=== PATIENT | female | born 1960 | race Two or more races ===

== ENCOUNTER 2024-11-26 05:30 | Day surgery (SDC) | payer MEDICAID, SELFPAY ==
--- NOTE | 2024-11-25 06:00 | EKG_ITS ---
[facility] Test Date: 2024-11-25 Pat Name: EZRA CARREON Department: Room: - Gender: Female Pony Rougher: MARIANELA : 1960 Requested By: Sánchez Bhat Order Number: [id number] Reading MD: Sánchez Bhat Measurements Intervals [place] Rate: 76 P: 3 MI: 165 QRS: -9 QRSD: 80 T: 31 QT: 381 QTc: 430 Interpretive Statements SINUS RHYTHM LOW QRS VOLTAGE IN PRECORDIAL LEADS PATTERN CONSISTENT WITH PULMONARY DISEASE No previous ECG available for comparison /store/S0/[id number]
[2024-11-25 09:56] VITALS: BMI 30.2
[2024-11-25 10:52] LABS: Basophils % (Auto) 1 % (0-2.5); Eosinophils # (Auto) 0.2 Thou/mm3 (0.0-0.5); Eosinophils % (Auto) 3 % (0-10); Hematocrit 41.8 % (36.0-46.0); Hemoglobin 13.9 g/dL (12.0-16.0); Immature Granulocytes % (Auto) 0 % (0-0); Immature Granulocytes Auto 0.01 Thou/mm3 (0.00-0.00); Lymphocytes # (Auto) 1.7 Thou/mm3 (1.0-4.8); Lymphocytes % (Auto) 34 % (10-50); Mean Corpuscular HGB Conc 33.3 g/dl (31.0-37.0); Mean Corpuscular Hemoglobin 30.5 pg (25.0-35.0); Mean Corpuscular Volume 92 fL (80-100); Monocytes # (Auto) 0.5 Thou/mm3 (0.0-0.8); Monocytes % (Auto) 9 % (0-12); Neutrophils # (Auto) 2.8 Thou/mm3 (1.8-7.7); Neutrophils % (Auto) 54 % (37-80); Nucleated Red Blood Cell % 0 /100 WBC (0); Platelet Count 182 Thou/mm3 (140-440); RDW Standard Deviation 41.9 fL (36.4-46.3); Red Blood Count 4.55 Miln/mm3 (4.00-5.20); White Blood Count 5.2 Thou/mm3 (3.6-11.0)
[2024-11-25 11:10] LABS: Alanine Aminotransferase 20 U/L (10-49); Albumin, Serum 4.8 gm/dL (3.4-4.8); Alkaline Phosphatase 103 U/L (46-116); Anion Gap 6 (7-16); Aspartate Amino Transferase 14 U/L (0-34); BUN/Creatinine Ratio 23 Ratio (12-20); Bilirubin,Total 0.8 mg/dL (0.3-1.2); Blood Urea Nitrogen 18 mg/dL (9-23); Calcium 9.9 mg/dL (8.3-10.6); Calcium (Corrected) 9.9 mg/dL (8.5-10.1); Carbon Dioxide 28.8 mMol/L (20.0-31.0); Chloride 104 mMol/L (98-107); Creatinine (Component) 0.8 mg/dL (0.6-1.3); Estimated Creatinine Clearance 76.4 mL/min (>60); Globulin 2.4 gm/dL (2.3-3.5); Glucose 93 mg/dL (74-106); Osmolality,Calculated 279 (275-295); Potassium 4.2 mMol/L (3.4-5.1); Sodium 139 mMol/L (136-145); Total Protein 7.2 gm/dL (5.7-8.2); eGFR > 60 See Note
[2024-11-25 11:48] LABS: Hepatitis A Antibody IgM Non Reactive (Non React); Hepatitis B Core Antibody IgM Non Reactive (Non React); Hepatitis B Surface Antigen Non Reactive (Non React); Hepatitis C Antibody Non Reactive (Non React)
[2024-11-25 14:46] LABS: HIV (1&2) Antibody Rapid Non-Reactive
[2024-11-26] VITALS (18 sets, daily range): BP systolic 108–136; BP diastolic 60–98; PULSE 69–90; RESP 12–98; TEMP 36.1–36.6; O2SAT 95–100; BMI 30.1
[2024-11-26] MEDS: RINGERS LACTATED 1000 ML 1,000 ML 20 ML IV (06:30)
--- NOTE | 2024-11-26 07:57 | PD.GYNHP ---
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 LINDSAY is a 64 year old female para 3 previous vaginal deliveries is admitted for a total laparoscopic hysterectomy bilateral salpingo-oophorectomy. Patient has a significant history of breast cancer. Had a left mastectomy with chemotherapy. Last year, she had a pelvic pain and evaluation showed darin presence ofg 7 cm left ovarian cyst . All evaluation for tumor marker were negative and CT negative for lymphadenopathy. Patient was offerd expectant managemnt , but the cyst persisted for almost a year. 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 ENGINEERING PROFESSOR Vital Signs Temp Pulse Resp BP Pulse Ox 97.5 F 74 15 108/60 99 11/26/24 06:17 11/26/24 06:17 11/26/24 06:17 11/26/24 06:17 11/26/24 06:17 Constitutional Constitutional: no acute distress Routine HEENT Exam Head: Present normocephalic and atraumatic Eye: Present EOMI and PERRL ENT: Present mucous membranes moist Routine Neck Exam Neck: Present supple and trachea midline Routine Respiratory Exam Respiratory: Present chest non-tender, lungs clear, normal breath sounds and no resp distress Routine Cardiovascular Exam Cardiovascular: Present RRR Routine Abdominal Exam Abdominal: Present soft and normoactive bowel sounds Routine Extremities Exam Extremities: Present full ROM Routine Skin Exam Skin: Present intact and dry Routine Neurological Exam Neurological: Present alert, oriented X3 and CN II-XII intact Routine Psychiatric Exam Psychiatric: Present normal affect and normal thought process MECHANICAL ENGINEERING PROFESSOR - Results Labs 11/25/24 10:26 11/25/24 10:26 Labs: Short CBC 11/25/24 Range/Units 10:26 WBC 5.2 (3.6-11.0) Thou/mm3 Hgb 13.9 (12.0-16.0) g/dL Hct 41.8 (36.0-46.0) % Plt Count 182 (140-440) Thou/mm3 BMP 11/25/24 10:26 Sodium 139 Potassium 4.2 Chloride 104 Carbon Dioxide 28.8 BUN 18 Creatinine 0.8 Glucose 93 Calcium 9.9 Liver Function 11/25/24 Range/Units 10:26 Total Bilirubin 0.8 (0.3-1.2) mg/dL AST 14 (0-34) U/L ALT 20 (10-49) U/L Alkaline Phosphatase 103 (46-116) U/L Albumin 4.8 (3.4-4.8) gm/dL Impressions Impression: 64 y/o p3, here for TLH+BSO Ovarian left cyst 6-7 cm Tumor marker negative , CT scan lymphadenopathy negative , no free fluid Small uterus atrophic retroverted Quality Measures Quality Measures VTE prophylaxis
--- NOTE | 2024-11-26 11:20 | SUR.PHASEI ---
pt received from OR in recovery bay 1. pt obtunded, breathing unlabored on 8l oxymask, oral airway in place. v/s stable. pt dressing to abd dermabond x3 cdi. report received from Sumi CARRANZA and Beata REDDY.
--- NOTE | 2024-11-26 11:50 | ESOP_ITS ---
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 The potential benefits and risks of the procedure, the likelihood of success, and the problems related to recuperation have been discussed with patient who agrees to proceed. The possible results of nontreatment and significant alternatives to the proposed procedure have also been explained, along with the risks and benefits of the alternatives. Risks and benefits of chosen anesthetic/sedation and possible use of blood/blood products (if appropriate) were discussed.The patient was identified as Angela Block and the procedure verified. A time out was held reviewing the patient identifiers, procedure planned and allergies.After administration of general anesthesia, the patient was placed in the dorsal lithotomy position, and prepped and draped in the usual sterile fashion. On examination under anesthesia,the uterus was anteverted at 10wk size. A márquez catheter was placed. The speculum was placed in the vagina, the cervix was grasped with the tenaculum, and a vaginal uterine manipulator medium Vcare was inserted. This area was then draped off the remainder of the operative field. This area was then draped off the remainder of the operative field. Supraumblical incision made and a verees needle used to establish pneumoperitioneum. 5 mm tracar inserted under optiview. After insufflation, a full survey of the abdominal cavity was done, and there were no abnormalities visualized. The patient was placed in Trendelenburg position, and the bowel was pushed out of the pelvis. At this time, a second skin incision was made 4 cm rt of the mildline port , and a second 5 mm trocar and sleeve were advanced under direct visualization. The trocar was withdrawn and replaced with a probe. A third incision was made at Left ASIS and the trocar placed under direct visualization without difficulty. Upon visualization of the pelvic organs, the uterus, left fallopian tubes and ovary were normal. Uterus was found to be retroverted and less mobile with posterior adhesions in the cul-de-sac. Large left ovarian cyst incorporating the left ovary was first removed intact avoiding any spillage of the contents. The end of the left fallopian tube was grasped with the grasper and the enseal device was then used to transect the mesosalpinx inferior to the fallopian tube, then the left round ligament followed by the left ligament were doubly coagulated with the and transected without difficulty. The uterine vessels, anterior and posterior leaves of the broad ligament were coagulated and transected in a serial manner to the level of the uterine artery. A similar procedure was carried out on the right. As dissection proceeded from the left to posterior wall of the uterus proximity to the colon was noted. Colorectal surgeon Dr. Ortega was consulted intraoperatively. Please see 's note for additional information. After ruling out any injury to the colon, next, the anterior leaf of the broad ligament was then dissected to the midline bilaterally, establishing a bladder flap with a combination of blunt and sharp dissection. Posterior adhesions were slowly dissected bluntly and the uterus was freed for the posterior colpotomy the uterine artery was then identified and doubly coagulated then transected without difficulty. Right ovary and tube were also removed. Copious suction irrigation was performed to evaluate for further bleeding but hemostasis was noted. colpotomy completed with harmonic device and vaginally the specimen was retrieved. Specimen retrieved vaginally along with b/l tubes and ovaries, it was passed off the operative field. The pedicles were evaluated with no bleeding noted. Vaginal stitching of the cuff done. Hemostasis was noted. Diagnostic cystoscopy done, dome examined with darin bubble, to be intact . B./L strong jets noticed Skin incision was repaired using monocryl 4-0 in a subcuticular stitch. The instrument, sponge, and needle counts were correct. Band-Aid were applied for dressing and the patient was taken to the recovery room in satisfactory condition.There were no complications.? Estimated blood loss (ml): 5 Surgical staff Operation Date: 11/26/24 07:30 Case Staff Assisting Surgeon: Jami Ortega LICENSED LOAN OFFICER: Zuri López RN First Assistant: Lorrie Valle Diagnosis Problem List Completed Was Problem List Reviewed/Reconciled?: Yes
[2024-11-26] MEDS: fentaNYL CIT INJ 50 mCg/ML AMP 2ML IV (11:52)
[2024-11-26] MEDS: RINGERS LACTATED 1000 ML 1,000 ML 125 ML IV ×2 (12:05→20:22)
[2024-11-26] MEDS: HYDROmorphone INJ 2 MG/ML VIAL 0.5 MG IVP (12:23)
[2024-11-26] MEDS: SIMETHICONE 80 MG CHEW PO ×2 (13:31→20:21)
--- NOTE | 2024-11-26 16:30 | SUR.PHASEII ---
Pt awake and alert, breathing unlabored on room air. v/s stable. pt dressing to abd dermabond x3 cdi. report called to Colette CARRANZA. pt will be transferred to room at this time.
[2024-11-26] MEDS: DOCUSATE SOD 100 MG CAPSULE PO (20:21)
[2024-11-26 21:26] LABS: Hematocrit 38.8 % (36.0-46.0); Hemoglobin 12.9 g/dL (12.0-16.0)
--- NOTE | 2024-11-26 23:00 | PC.NURSE ---
Removed márquez at 2300 per MD order. MD said ok for patient to talk in the room. Patient educated about fall risk precautions and to ask for assistance using call light
[2024-11-27] VITALS: BP 105/51; PULSE 82; RESP 18; TEMP 36.9; O2SAT 95
[2024-11-27 04:00] VITALS: BP 95/61; PULSE 77; RESP 18; TEMP 36.8; O2SAT 97
[2024-11-27 05:52] LABS: Basophils % (Auto) 0 % (0-2.5); Eosinophils % (Auto) 0 % (0-10); Hematocrit 39.2 % (36.0-46.0); Immature Granulocytes % (Auto) 1 % (0-0); Immature Granulocytes Auto 0.05 Thou/mm3 (0.00-0.00); Lymphocytes # (Auto) 1.6 Thou/mm3 (1.0-4.8); Lymphocytes % (Auto) 15 % (10-50); Mean Corpuscular HGB Conc 33.2 g/dl (31.0-37.0); Mean Corpuscular Hemoglobin 30.4 pg (25.0-35.0); Mean Corpuscular Volume 92 fL (80-100); Monocytes # (Auto) 0.8 Thou/mm3 (0.0-0.8); Monocytes % (Auto) 8 % (0-12); Neutrophils # (Auto) 8.1 Thou/mm3 (1.8-7.7); Neutrophils % (Auto) 77 % (37-80); Nucleated Red Blood Cell % 0 /100 WBC (0); Platelet Count 179 Thou/mm3 (140-440); RDW Standard Deviation 41.5 fL (36.4-46.3); Red Blood Count 4.27 Miln/mm3 (4.00-5.20); White Blood Count 10.6 Thou/mm3 (3.6-11.0)
[2024-11-27 07:35] VITALS: PULSE 73; RESP 18; RESP 96
[2024-11-27 08:00] VITALS: BP 103/68; PULSE 75; RESP 18; TEMP 36.4; O2SAT 94
--- NOTE | 2024-11-27 08:55 | ESDS_ITS ---
Planned Discharge Date 11/27/24 DS: Providers Provider Date of admission: 11/26/24 16:35 Primary care physician: Shashi Ruvalcaba MD Admitting Provider: Alta Steele MD Attending Provider on Admission: Alta Steele MD Attending Provider on DC: Alta Steele MD Discharging Provider: Alta Steele MD DS: Diagnosis Problem List Completed Was Problem List Reviewed/Reconciled?: Yes Hospital Course Hospital Course Hospital course: Ms. LINDSAY is a 64 year old female para 3 status post total laparoscopic hysterectomy, left and right oophorectomy, left cystectomy and diagnostic cystoscopy. Has been doing well denies any nausea vomiting, is tolerating diet, has been passing gas, ambulating. 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 Temp Pulse Resp BP Pulse Ox O2 Del Method O2 Flow Rate 97.6 F 75 18 103/68 94 L Room Air 3 11/27/24 08:00 11/27/24 08:00 11/27/24 08:00 11/27/24 08:00 11/27/24 08:00 11/27/24 08:00 11/26/24 11:35 Constitutional Constitutional: no acute distress Routine HEENT Exam Head: Present normocephalic and atraumatic Eye: Present EOMI and PERRL ENT: Present mucous membranes moist Routine Neck Exam Neck: Present supple and trachea midline Routine Respiratory Exam Respiratory: Present chest non-tender, lungs clear, normal breath sounds and no resp distress Routine Cardiovascular Exam Cardiovascular: Present RRR Routine Abdominal Exam Abdominal: Present soft and normoactive bowel sounds Routine Extremities Exam Extremities: Present full ROM Routine Skin Exam Skin: Present intact and dry Routine Neurological Exam Neurological: Present alert, oriented X3 and CN II-XII intact Routine Psychiatric Exam Psychiatric: Present normal affect and normal thought process Discharge Plan Plan Patient Disposition: HOME (Self Care) Prescriptions/Referrals Prescriptions/Med Rec: New ibuprofen 800 mg tablet 800 mg PO Q8H PRN (Reason: pain) Qty: 30 0RF acetaminophen-codeine 300-15 mg tablet 1 tab PO BID PRN (Reason: pain) Qty: 10 0RF acetaminophen 650 mg tablet extended release 650 mg PO Q12H PRN (Reason: fever or pain) Qty: 20 0RF docusate sodium [Colace] 100 mg capsule 100 mg PO BID Qty: 30 0RF metronidazole 500 mg tablet 500 mg PO Q12H Qty: 30 0RF doxycycline monohydrate 100 mg tablet 100 mg PO BID Qty: 30 0RF No Action atorvastatin 40 mg tablet 40 mg PO QPM cholecalciferol (vitamin D3) [Vitamin D3] 50 mcg (2,000 unit) tablet 50 mcg PO QDAY Referrals: Shashi Ruvalcaba MD [Primary Care Provider] - Patient/Caregiver Discharge Instructions Print Language: Zimbabwean Stand Alone Forms: [facility] Award Info., Patient Portal Info Letter Discharge Order Discharge Orders: Discharge (Routine); Ordered 11/27/24 Ordered By: Alta Steele
[2024-11-27] MEDS: DOCUSATE SOD 100 MG CAPSULE PO (09:09)
--- NOTE | 2024-11-27 10:29 | PC.SS ---
Patient Angela Block is a 64 Year old female admitted for [facility] SS met with patient at bedside to discuss discharge plan. Patient reports she lives at home with her , Reba Conley who she reports is her Surrogate decision maker [phone]. Prior to admission patient did not utilize any source of DME and was able to complete ADL's independently. Choice of pharmacy is [facility]. PCP is Shashi Ruvalcaba. At time of discharge patient will return back home. Discharge Plan: home Next of Kin: , Jarvis Britton
== END 2024-11-27 11:42 | disposition home or self-care (01) ==
LOC: S2EX 05:49 → S3SX 17:18
PROVIDERS: PCP Family Medicine; Referring Provider Student in an Organized Health Care Education/Training Program; Visit Provider Student in an Organized Health Care Education/Training Program
PROC: 0UT94ZZ Resection of Uterus, Percutaneous Endoscopic Approach (ICD-10-PCS; CPT 58571; principal; 2024-11-26 07:30)
DX: N83.292 Other ovarian cyst, left side (principal); Z85.3 Personal history of malignant neoplasm of breast; Z90.12 Acquired absence of left breast and nipple; K66.0 Peritoneal adhesions (postprocedural) (postinfection)
CPT/HCPCS: 58571; 36415; 80053; 80074; 85014; 85018; 85025; 86703; 86850; 86900; 86901; 93005; A4217; A4649; J0131; J0171; J0690; J1100; J2250; J2371; J2405; J2704; J3010; J3490; J7120; Q9968; A9270

== ENCOUNTER 2024-12-03 22:24 | Emergency (ER) | payer MEDICAID, SELFPAY ==
[2024-12-03 22:25] VITALS: BMI 30.2
[2024-12-03 22:41] VITALS: BP 120/75; PULSE 88; RESP 18; TEMP 37.2; O2SAT 99
--- NOTE | 2024-12-03 23:58 | PD.EDALLER ---
ED Allergic Reaction RME/HPI General Chief complaint: Wound/Laceration Stated complaint: REDNESS AND WARMTH TO SURGICAL SITE Time Seen by Provider: 12/03/24 23:01 Arrival date/time: 12/03/24 22:24 64F with no significant PMH presents to ED with several days of red, itchy rash around surgical sites from hysterectomy done by Dr. Steele here 1 week ago. Patient has been taking doxy and metronidazole since time of discharge. Limitations: no limitations Related Data Home Medications ?Medication ?Instructions ?Recorded ?Confirmed atorvastatin 40 mg tablet 40 mg PO QPM 11/25/24 11/26/24 cholecalciferol (vitamin D3) 50 50 mcg PO QDAY 11/25/24 11/26/24 mcg (2,000 unit) tablet (Vitamin D3) Previous Rx's ?Medication ?Instructions ?Recorded acetaminophen 300 mg-codeine 15 mg 1 tab PO BID PRN pain #10 tabs 11/27/24 tablet acetaminophen 650 mg 650 mg PO Q12H PRN fever or pain 11/27/24 tablet,extended release #20 tabs docusate sodium 100 mg capsule 100 mg PO BID #30 caps 11/27/24 (Colace) doxycycline monohydrate 100 mg 100 mg PO BID #30 tabs 11/27/24 tablet ibuprofen 800 mg tablet 800 mg PO Q8H PRN pain #30 tabs 11/27/24 metronidazole 500 mg tablet 500 mg PO Q12H #30 tabs 11/27/24 diphenhydramine HCl 2 % topical 1 applic topical BID PRN itching 12/03/24 gel (Benadryl) #103 mL diphenhydramine HCl 25 mg tablet 25 mg PO TID PRN itching #30 tabs 12/03/24 (Banophen) Allergies Allergy/AdvReac Type Severity Reaction Status Date / Time No Known Allergies Allergy Verified 12/03/24 22:25 Review of Systems Review of Systems Systems Reviewed: All systems reviewed, normal except as documented Constitutional Constitutional: Reports system reviewed and no additional complaints, except as documented, Denies fever(s) and Denies headache(s) ENT Ears, Nose, Mouth, and Throat: Denies disequilibrium and Denies headache(s) Cardiovascular Cardiovascular: Reports system reviewed and no additional complaints, except as documented, Denies chest pain and Denies dyspnea Respiratory Respiratory: Reports system reviewed and no additional complaints, except as documented, Denies cough and Denies dyspnea Gastrointestinal Gastrointestinal: Reports system reviewed and no additional complaints, except as documented, Denies abdominal pain, Denies nausea and Denies vomiting Integumentary/Breasts Skin/Breast: Reports as per HPI, Reports pruritus and Reports rash Neurologic Neurologic: Reports system reviewed and no additional complaints, except as documented, Denies confusion, Denies disequilibrium and Denies headache(s) Psychiatric Psychiatric: Denies confusion Past Medical History Past Medical History NEUROLOGIC: Negative Neurological Disorders or Seizures CARDIAC: Positive Hypercholesterolemia; Negative Cardiac Disorders or Congestive Heart Failure RESPIRATORY: Negative Chronic Obstructive Pulmonary Disease (COPD) GASTROINTESTINAL: Negative Gastrointestinal Disorders or Hepatitis GENITOURINARY: Negative Genitourinary Disorders or Renal Disease REPRODUCTIVE: Positive Breast Cancer (Left) and Previous Pregnancies MUSCULOSKELETAL: Negative Musculoskeletal Disorders ENT: Positive Cataracts (bilateral) ENDOCRINE: Negative Endocrine Disorders, Diabetes Mellitus Type 1 or Diabetes Mellitus Type 2 HEMATOLOGIC: Negative Blood Disorders OTHER HISTORY: Positive Hospitalization (surgery), Chemotherapy (2020), Radiation Therapy (2020), Measles, Cancer and Breast Cancer (Left); Negative Autoimmune Disease, Shingles, Blood Transfusions, Blood Transfusion Reaction or Anesthesia Reactions Family History FAMILY HISTORY: Positive Family Cardiac Disorders and Family Surgery; Negative Family Psychiatric Problems, Family Respiratory Disorders, Family Gastrointestinal Problems, Family Cancer or Family Anesthesia Reaction Surgical History SURGICAL: Positive Mastectomy (Left) Social History SMOKING STATUS: Never smoker ED Exam General Limitations: Present no limitations General appearance: Present alert and in no apparent distress Head Head exam: Present atraumatic Eye Eye exam: Present normal appearance, PERRL and EOMI ENT ENT exam: Present normal exam, normal oropharynx and mucous membranes moist Neck Neck exam: Present normal inspection, full ROM and trachea midline Chest Chest inspection: Present normal inspection and symmetric chest wall rise Respiratory Respiratory exam: Present normal lung sounds bilaterally Cardiovascular Cardiovascular exam: Present regular rate, normal rhythm and normal heart sounds Abdominal Exam Abdominal exam: Present soft and normal bowel sounds Extremities Exam Extremities exam: Present normal inspection and full ROM Back Exam Back exam: Present normal inspection and full ROM Neurological Exam Neurological exam: Present alert, oriented X3 and CN II-XII intact Psychiatric Psychiatric exam: Present normal affect and normal mood Skin Skin exam: Present warm, dry, intact, normal color and rash Course Quality Measures none Vital Signs Vital signs: Vital Signs Temperature 98.9 F 12/03/24 22:41 Pulse Rate 88 12/03/24 22:41 Respiratory Rate 18 12/03/24 22:41 Blood Pressure 120/75 12/03/24 22:41 Pulse Oximetry (%) 99 12/03/24 22:41 Oxygen Delivery Method Room Air 12/03/24 22:41 O2 at 99% on RA and WNLs Allergic Reaction MDM Narrative MDM Narrative:: 64F with no significant PMH presents to ED with several days of red, itchy rash around surgical sites from hysterectomy done by Dr. Steele here 1 week ago. Patient has been taking doxy and metronidazole since time of discharge. Physical exam reveals red rash with some excoriations around laparascopic sites. No gross ab tenderness. Patient is afebrile, calm, and alert. Dr. Steele was not personal banking officer. Dr. Monroy, OB, agrees likely allergic reaction, possibly to sutures. She recommends Benadryl. Patient has OB follow-up in [address] Steele. Patient data External records reviewed:: [facility] previous records Clinical information provided by:: patient Social determinants that could affect healthcare access:: none Patient has the following chronic illnesses:: none How is presenting disease/condition affected by chronic disease/condition?: no chronic disease Evaluation data The following diagnostics were reviewed and interpreted by me:: other (specify) (none) Lab and/or radiology exams considered but not ordered:: not ordered Interpretation Summary: n/a Medications / Prescriptions Medications or Prescriptions considered but not ordered:: not ordered Medication administrations:: n/a Consultations Consultation(s) initiated? (list below): Yes Diagnosis Differential Diagnosis allergic reaction: anaphylaxis, allergic reaction, angioedema, contact dermatitis, adverse reaction to drug, viral enanthem and urticaria Most likely diagnosis given after review of the tests above:: allergic reaction Admission Indicated Admission indicated?: not indicated Admission Request Was there a request for admission?: No Disposition Plan Disposition Plan: Discharge Discharge Attestation Discharge Attestation: The patient and all family members were given an opportunity to ask questions and understood the discharge instructions. Discharge instructions specifically effects, indications for sooner follow up or return to the emergency department, and the expected course of current diagnosis. Patient condition: Stable Discharge Plan Plan Patient Disposition: HOME (Self Care) Disposition Comment: Stable Prescriptions/Referrals Prescriptions/Med Rec: New diphenhydramine HCl [Banophen] 25 mg tablet 25 mg PO TID PRN (Reason: itching) Qty: 30 0RF Benadryl 2 % gel 1 applic topical BID PRN (Reason: itching) Qty: 103 0RF No Action atorvastatin 40 mg tablet 40 mg PO QPM cholecalciferol (vitamin D3) [Vitamin D3] 50 mcg (2,000 unit) tablet 50 mcg PO QDAY ibuprofen 800 mg tablet 800 mg PO Q8H PRN (Reason: pain) Qty: 30 0RF acetaminophen-codeine 300-15 mg tablet 1 tab PO BID PRN (Reason: pain) Qty: 10 0RF acetaminophen 650 mg tablet extended release 650 mg PO Q12H PRN (Reason: fever or pain) Qty: 20 0RF docusate sodium [Colace] 100 mg capsule 100 mg PO BID Qty: 30 0RF metronidazole 500 mg tablet 500 mg PO Q12H Qty: 30 0RF doxycycline monohydrate 100 mg tablet 100 mg PO BID Qty: 30 0RF Problem List Clinical Impression: Allergic reaction Patient/Caregiver Discharge Instructions Additional Instructions: Please follow-up with PCP/OBGYN within 24-48 hours and return immediately if symptoms worsen. Print Language: Azeri Stand Alone Forms: Patient Portal Info Letter PA/STOCK CLIPPER Supervising Physician PA/STOCK CLIPPER Supervising Physician: Dr. Douglas
== END 2024-12-03 23:20 | disposition home or self-care (01) ==
LOC: SERX 23:34
PROVIDERS: Emergency Provider Emergency Medicine; PCP Physician Assistant
DX: T78.40XA Allergy, unspecified, initial encounter (principal); Z90.710 Acquired absence of both cervix and uterus; X58.XXXA Exposure to other specified factors, initial encounter
CPT/HCPCS: 99281